=== PATIENT | male | born 1975 | race Two or more races ===

== ENCOUNTER 2019-06-20 14:10 | Emergency (ER) | payer OTHER ==
[~2019-06-20] VITALS: Ht 180.3 cm; Wt 81.0 kg
[2019-06-20 14:15] VITALS: BP 121/79
[2019-06-20] MEDS ORDERED: CEFD300C37 PO (14:34)
== END 2019-06-20 15:57 | disposition home or self-care (01) ==
LOC: ED 15:30
DX: J06.9 Acute upper respiratory infection, unspecified (principal); H10.022 Other mucopurulent conjunctivitis, left eye; F17.200 Nicotine dependence, unspecified, uncomplicated
CPT/HCPCS: 71046; 87081; 87880; 99284